=== PATIENT | male | born 2000 | race Two or more races ===

== ENCOUNTER 2024-02-28 00:12 | Emergency (ER) | payer SELFPAY ==
[~2024-02-28] VITALS: Ht 180.3 cm; Wt 76.0 kg
[2024-02-28 00:45] VITALS: BP 121/83; PULSE 89; RESP 16; TEMP 100
[2024-02-28 03:40] VITALS: O2SAT 99
== END 2024-02-28 03:50 | disposition home or self-care (01) ==
LOC: ER 00:12
DX: S46.912A Strain of unspecified muscle, fascia and tendon at shoulder and upper arm level, left arm, initial encounter (principal); V89.2XXA Person injured in unspecified motor-vehicle accident, traffic, initial encounter; Y93.89 Activity, other specified; Y92.89 Other specified places as the place of occurrence of the external cause; Y99.8 Other external cause status
CPT/HCPCS: 73030